=== PATIENT | male | born 1990 | race Caucasian/White ===

== ENCOUNTER 2024-12-22 11:28 | Emergency (ER) | payer MEDICAID ==
[~2024-12-22] VITALS: Ht 172.7 cm; Wt 97.5 kg
[2024-12-22] MEDS ORDERED: Diphth,Pertuss(Acell),Tet Vac 0.5 ML VIAL IM ONE ×2 (11:50→13:10)
[2024-12-22] MEDS ORDERED: AMOCLA875 PO (13:08)
== END 2024-12-22 13:15 | disposition home or self-care (01) ==
LOC: ER 11:28
DX: S91.331A Puncture wound without foreign body, right foot, initial encounter (principal); W45.0XXA Nail entering through skin, initial encounter
CPT/HCPCS: 73630; 90471; 90715; 99283-25